=== PATIENT | female | born 1960 | race Caucasian/White ===

== ENCOUNTER 2018-05-28 11:31 | Day surgery (SDC) | payer BC ==
[2018-05-28] MEDS ORDERED: PROPOFOL 40 ML (14:12)
== END 2018-05-28 14:51 | disposition home or self-care (01) ==
LOC: GIL 11:31
DX: K31.7 Polyp of stomach and duodenum (principal); K44.9 Diaphragmatic hernia without obstruction or gangrene; E66.9 Obesity, unspecified; Z68.36 Body mass index [BMI] 36.0-36.9, adult
CPT/HCPCS: 43239; 88305; 88312